=== PATIENT | male | born 1965 | race Caucasian/White ===

== ENCOUNTER 2018-05-30 14:44 | Day surgery (SDC) | payer BC ==
[~2018-05-30] VITALS: Ht 180.3 cm; Wt 93.1 kg
[2018-05-30] MEDS ORDERED: ceFAZolin 2 GM IV Premixed 50 ML ONE (15:02)
[2018-05-30] MEDS ORDERED: ROCURONIUM 10 MG/ML 5 ML SYRINGE IV ONE (15:04)
[2018-05-30] MEDS ORDERED: proPOfol 200 MG/20 ML (DIPRIVAN) VIAL IV ONE ×2 (15:04→17:11)
[2018-05-30] MEDS ORDERED: LIDOCAINE PF 2% 5 ML (XYLOCAINE) VIAL ONE (15:04)
[2018-05-30] MEDS ORDERED: fentaNYL INJECTION 100 MCG/2 ML AMP ONE (15:05)
[2018-05-30] MEDS ORDERED: MIDAZOLAM 2 MG/2 ML (VERSED) VIAL ONE (15:05)
[2018-05-30] MEDS ORDERED: BUP/EPI 0.5% 1:200,000 (SENSORCAINE) 30 ML VIAL ONE (15:14)
[2018-05-30] MEDS ORDERED: LIDOCAINE 1% INJ 20 ML 20 ML VIAL ONE (15:15)
[2018-05-30 15:16] VITALS: BP 158/79
[2018-05-30] MEDS ORDERED: LACTATED RINGERS 1,000 ML IV PRN (15:20)
[2018-05-30] MEDS ORDERED: ENAL20TA74 PO (15:36)
[2018-05-30] MEDS ORDERED: LORA10TA76 PO (15:36)
[2018-05-30] MEDS ORDERED: metroNIDAZOLE 500MG/100ML IVPB 100 ML ONE (15:46)
[2018-05-30] MEDS ORDERED: ceFAZolin 2 GM/50 ML PRE-MIX IVPB IV ONE (16:00)
[2018-05-30] MEDS ORDERED: metroNIDAZOLE 500MG/100ML IVPB 100 ML IV ONE (16:00)
[2018-05-30] MEDS ORDERED: SEVOFLURANE (ULTANE) 15 ML INHAL SOLN ONE ×6 (16:18→17:17)
[2018-05-30] MEDS ORDERED: DEXAMETHASONE 10 MG/ML (DECADRON) 1 ML VIAL ONE (17:17)
[2018-05-30] MEDS ORDERED: NEOSTIGMINE 1 MG/ML 5 ML SYRINGE ONE (17:17)
[2018-05-30] MEDS ORDERED: GLYCOPYRROLATE 0.2 MG/ML (ROBINUL) 2 ML VIAL ONE (17:17)
[2018-05-30] MEDS ORDERED: ONDANSETRON 4 MG/2 ML (SDV) Z0FRAN ONE (17:17)
--- NOTE | 2018-05-30 17:21 | Progress Note-Post Operative ---
Post-Operative Progess Note Surgeon (s)/Pulp Maker (s) Surgeon THUY BHARDWAJ DO Pulp Maker: na Pre-Operative Diagnosis ACUTE APPENDICITIS Post-Operative Diagnosis same Procedure & Operative Findings Date of Procedure 05/30/18 Procedure Performed/Findings lap appy Anesthesia Type gen Estimated Blood Loss Estimated blood loss (mL): min Specimens/Packing Specimens Removed appendix THUY BHARDWAJ DO May 30, 2018 17:21
[2018-05-30] MEDS ORDERED: DOCU-143 PO (17:22)
[2018-05-30] MEDS ORDERED: ACHD5005 PO (17:22)
--- NOTE | 2018-05-30 17:23 | Discharge Inst-Simple/Standard ---
Discharge Inst-Standard Discharge Medications New, Converted or Re-Newed RX: RX on Chart Patient Instructions/Follow Up Plan of Care/Instructions/FU: 2 weeks Woody Activity as Tolerated: No Discharge Diet: Regular Diet Other Inst to Patient Follow up Appt: Make appointment for 2 week. Instructions: No lifting greater than 10 pounds. No strenuous activity. May shower in 24 hours, no tub bath or soaking. Use incentive spirometer at home as directed. No Smoking Skin/Wound Care: You have special glue over incisions it will fall off on its own. Symptoms to Report: Appetite Changes, Extremity Discoloration, Numbness/Tingling, Swelling Increased , Bleeding Excessive, Eyesight Changes, Pain Increased, Urine Color Change, Constipation(Persistent), Fever over 101 degree F, Pain/Pressure in chest, Urinating Difficulty, Cough Up/Vomit Blood, Heart Beat Irreg/Pounding, Pain/ Pressure in jaw, Vaginal Bleeding Increase, Cramps in feet or legs, Lightheadedness, Pain/Pressure in shoulder, Diarrhea(Persistent), Memory Changes Suddenly, Questions/Concerns, Weight gain consecutive days, Dizziness/ Fainting, Nausea/Vomiting, Shortness of Breath, Weight gain over 2 pounds If questions or concerns contact your physician Or seek help at emergency department. THUY WOODY DO May 30, 2018 17:23
[2018-05-30] MEDS ORDERED: KETOROLAC 30 MG/ML VIAL ONE (17:27)
[2018-05-30 18:10] VITALS: BP 119/70
[2018-05-30 18:45] VITALS: BP 134/78
--- NOTE | 2018-05-30 19:00 | NUR ---
HAS BEEN ALERT, AND DENIES PAIN THROUGHOUT RECOVERY. TAKING PO FLUIDS WITHOUT PROBLEM. ASSISTED UP TO BR, MOVES VERY EASILY, GAIT STEADY. VOIDED AND ASSISTED BACK TO ROOM. NO CHANGE IN SITE ASSESSMENT. STATES HE IS READY FOR DISMISSAL.
[2018-05-30 19:02] VITALS: BP 134/78
--- NOTE | 2018-05-31 04:59 | OPERATIVE REPORT ---
DATE OF SERVICE: 05/30/2018 PREOPERATIVE DIAGNOSIS: Acute appendicitis. POSTOPERATIVE DIAGNOSIS: Acute appendicitis. PROCEDURE: Laparoscopic appendectomy. SURGEON: Thuy Woody DO. ANESTHESIA: General. ESTIMATED BLOOD LOSS: Minimal. COMPLICATIONS: None. INDICATIONS: The patient is a 52-year-old male with right lower quadrant abdominal pain. CT scan consistent with acute appendicitis. The patient's physical exam consistent with acute appendicitis as well. The patient understands risks and benefits of procedure and wished to proceed with procedure. Consent was signed on the chart. DESCRIPTION OF PROCEDURE: The patient was taken to the operating suite, was prepped and draped in sterile fashion. Surgical pause was performed. A 5 mm incision made at the umbilicus. Cautery was used to dissect down to the fascia, grasped and elevated. Veress needle was inserted in the abdomen and pneumoperitoneum was achieved. Under direct visualization of the laparoscope, 5 mm trocar using a Visiport was then inserted into the abdomen. On direct visualization of the laparoscope, a 5 mm trocar was placed in the suprapubic region and a 12 mm trocar was placed in the left lower quadrant. The appendix was located and inflamed and stuck to the retroperitoneal area. This was then able to be bluntly dissected up and a LigaSure was then used to go across the mesoappendix. Once to the base, Endo-JENNIFER 2.5 stapler was then fired across the base of the appendix. Hemostasis was achieved. The staple line was intact. The abdomen was irrigated and suctioned. The fascia at 12 mm trocar was then closed using 0 Vicryl with Endoclose. The abdomen was then desufflated, the trocars were removed. Skin was then closed using 4-0 Vicryl in a subcuticular fashion. The abdomen was then washed and dried and Skin Affix was placed over incisions. The patient tolerated the procedure well without any complications and taken to recovery room in stable condition. Job ID: [id number] DocumentID: [id number] Dictated Date: 05/30/2018 17:26:45 Electronics Technician Apprentice Date: 05/31/2018 04:58:26 Dictated By: THUY WOODY DO [facility]
--- NOTE | 2018-05-31 10:14 | Anesthesia-General Post-Op ---
General Patient Condition Mental Status/LOC: Same as Preop Cardiovascular: Satisfactory Nausea/Vomiting: Absent Respiratory: Satisfactory Pain: Controlled Complications: Absent Post Op Complications Complications None Follow Up Care/Instructions Patient Instructions None needed. Anesthesia/Patient Condition Patient Condition Patient is doing well, no complaints, stable vital signs, no apparent adverse anesthesia problems. No complications reported per nursing. SREE ABEL CRNA May 31, 2018 10:14
== END 2018-05-30 19:02 | disposition home or self-care (01) ==
LOC: SDC 14:44
PROVIDERS: ATTEND Surgery
DX: K35.80 Unspecified acute appendicitis (principal); Z11.2 Encounter for screening for other bacterial diseases; I10 Essential (primary) hypertension; J30.2 Other seasonal allergic rhinitis; F17.210 Nicotine dependence, cigarettes, uncomplicated; Z79.899 Other long term (current) drug therapy
CPT/HCPCS: 87081

== ENCOUNTER → 2018-05-30 | Outpatient (CLI) | payer BC ==
[~2018-05-30] MED LIST: ACHD5005 PO; DOCU-143 PO; ENAL20TA74 PO; LORA10TA76 PO
[2018-05-30 12:38] LABS: BASOPHILS % (AUTO) 0 % (0-10); EOSINOPHILS % (AUTO) 0 % (0-10); HEMATOCRIT 43 % (40-54); HEMOGLOBIN 14.5 G/DL (13.3-17.7); LYMPHOCYTES # (AUTO) 1.2 X 10^3 (1.0-4.0); LYMPHOCYTES % (AUTO) 6 % (12-44); MEAN CORPUSCULAR HEMOGLOBIN 32 PG (25-34); MEAN CORPUSCULAR HGB CONC 34 G/DL (32-36); MEAN CORPUSCULAR VOLUME 94 FL (80-99); MONOCYTES # (AUTO) 2.5 X 10^3 (0.0-1.0); MONOCYTES % (AUTO) 12 % (0-12); NEUTROPHILS # (AUTO) 17.1 X 10^3 (1.8-7.8); NEUTROPHILS % (AUTO) 82 % (42-75); PLATELET COUNT 287 10^3/uL (130-400); RED CELL DISTRIBUTION WIDTH 13.8 % (10.0-14.5); WHITE BLOOD COUNT 20.8 10^3/uL (4.3-11.0)
[2018-05-30 12:42] LABS: BILIRUBIN,URINE NEGATIVE (NEGATIVE); CLARITY,URINE CLEAR; COLOR,URINE YELLOW; GLUCOSE, URINE (UA) NEGATIVE (NEGATIVE); KETONES,URINE NEGATIVE (NEGATIVE); LEUKOCYTE ESTERASE ,URINE 1+ (NEGATIVE); NITRITE,URINE NEGATIVE (NEGATIVE); PH,URINE 6.5 (5-9); PROTEIN,URINE NEGATIVE (NEGATIVE); UROBILINOGEN,URINE 1 MG/DL (NORMAL)
[2018-05-30 13:04] LABS: AMORPHOUS SEDIMENT,UR RARE AMOR URATES /LPF; BACTERIA,URINE TRACE /HPF; WBC,URINE 0-2 /HPF
[2018-05-30 13:28] LABS: BAND NEUTROPHILS 0 %; BASOPHILS % (MANUAL) 0 %; EOSINOPHILS % (MANUAL) 0 %; LYMPHOCYTES % (MANUAL) 6 %; MONOCYTES % (MANUAL) 8 %; NEUTROPHILS % (MANUAL) 86 %; RBC MORPH NORMAL
--- NOTE | 2018-05-30 14:05 | Diagnostic Imaging Report ---
PROCEDURE: CT abdomen and pelvis without contrast. TECHNIQUE: Multiple contiguous axial images were obtained through the abdomen and pelvis without the use of intravenous contrast. INDICATION: Lower abdominal pain. COMPARISON: None. FINDINGS: The lung bases are clear. The liver, gallbladder, pancreas, spleen, adrenals, kidneys, collecting systems and bladder are negative on this noncontrast exam. The appendix is thickwalled and dilated up to 1.2 cm in diameter. There are marked inflammatory changes surrounding the appendix. No discrete fluid collections. No evidence of perforation. Moderate colonic diverticulosis without evidence of active diverticulitis. No evidence of bowel obstruction. Mild atherosclerotic calcifications including the abdominal aorta. No acute osseous findings. IMPRESSION: 1. CT findings consistent with acute uncomplicated appendicitis. 2. Moderate colonic diverticulosis without evidence of active diverticulitis. Dictated by: Dictated on workstation # [id number]
== END ==
LOC: RAD 12:23
PROVIDERS: ATTEND Nurse Practitioner Family
DX: K57.30 Diverticulosis of large intestine without perforation or abscess without bleeding (principal)
CPT/HCPCS: 36415; 74176; 81000; 85007; 85027; 87088

== ENCOUNTER → 2022-04-29 | Outpatient (CLI) | payer BC ==
--- NOTE | 2022-04-29 13:28 | Diagnostic Imaging Report ---
PROCEDURE: US Scrotum. TECHNIQUE: Multiple real-time grayscale images were obtained over the scrotum in various projections bilaterally. INDICATION: Left testicular pain The right testicle measures 4.4 x 2.7 x 2.9 cm. Left testicle measures 4.7 x 3.3 x 3.5 cm. The testes have normal echogenicity. The left testicle appears hyperemic compared to the right. The left epididymis is edematous and hyperemic. Right epididymis appears normal. There is no hydrocele. There are no varicoceles. IMPRESSION: Left epididymoorchitis. Dictated by: Dictated on workstation # [id number]
== END ==
LOC: RAD 12:37
PROVIDERS: ATTEND Family Medicine
DX: Z23 Encounter for immunization (principal); N45.3 Epididymo-orchitis; N44.00 Torsion of testis, unspecified; J30.1 Allergic rhinitis due to pollen; J30.2 Other seasonal allergic rhinitis
CPT/HCPCS: 76870

== ENCOUNTER → 2022-08-05 | Outpatient (CLI) | payer BC ==
--- NOTE | 2022-08-05 12:46 | Diagnostic Imaging Report ---
US SCROTUM (Testicle) [id number] TECHNIQUE: Enriquez-scale, color doppler and spectral duplex imaging of the scrotum and its contents was performed. INDICATION: Testicular swelling and pain COMPARISON: 04/29/2022 FINDINGS: Right: The right testis is normal in size measuring 4.5 x 2.5 x 3.7 cm. It has homogenous echogenicity without mass or microcalcification. Hyperemia is present throughout the right testicle. The epididymis is diffusely enlarged and hyperemic. No hydrocele or varicole. Left: The left testis is normal in size measuring 3.2 x 1.7 x 2.5 cm. It has homogenous echogenicity without mass or microcalcification. Blood flow is present in the left testis by color doppler imaging, and low resistance waveforms are present. The epididymis is normal. No hydrocele or varicole. IMPRESSION: 1. Right-sided epididymitis orchitis. Dictated by: Dictated on workstation # [id number]
== END ==
LOC: RAD 12:00
PROVIDERS: ATTEND Family Medicine
DX: N45.3 Epididymo-orchitis (principal); I10 Essential (primary) hypertension; E78.5 Hyperlipidemia, unspecified; R50.9 Fever, unspecified
CPT/HCPCS: 76870